=== PATIENT | female | born 1965 | race Caucasian/White ===

== ENCOUNTER → 2017-06-21 11:31 | Outpatient (CLI) | payer BC ==
[~2017-06-21] VITALS: Ht 162.6 cm; Wt 81.8 kg
--- NOTE | ~2017-06-21 | OP ---
PATIENT NAME: DENIA PAZ MEDICAL RECORD: [id number] :61 LOCATION:D.CAT ADMISSION DATE: SURGEON: CHRISTY TAYLOR MD DATE OF OPERATION: 06/21/2017 PROCEDURES: Left heart cath, selective coronary angiography, and right radial approach. CATHETERS: A 5-Greenlandic sheath and [place] catheter. The procedure was well tolerated. The patient returned to the bentley and sheath was removed. TR band was placed. FINDINGS: Left ventriculography in 30-degree WICK view: Normal wall motion. Normal systolic function. CORONARY ANATOMY: LEFT MAIN: Left main is free of disease. LAD: Free of disease in the diagonal system. CIRCUMFLEX: Free of disease in the marginal system. RIGHT CORONARY ARTERY: Dominant artery, gives rise to PDA, free of disease. IMPRESSION: Normal systolic function. Normal coronary anatomy. TRANSINT:[id number] Voice Confirmation ID: [id number] DOCUMENT ID: [id number] CHRISTY TAYLOR MD CC: [id number] DICTATION DATE: 06/21/17 1411 MAIL RIDER: 06/21/17 1554 [facility] [address] [id number]
--- NOTE | ~2017-06-21 | HEMODYNAMI ---
PATIENT:DENIA PAZ MEDICAL RECORD: [id number] : 61 LOCATION:S[facility]ET[facility] ADMISSION DATE: 06/21/17 Generatedon:06/21/201714:10 Patient name: DENIA PAZ Patient #: [id number] SSN: : 1965 Date of study: 06/21/2017 Page: Of Hemodynamic Procedure Report Patient Data Patient Demographics Procedure consent was obtained First Name: DENIA Gender: Female Last Name: BRANDI : 1965 Middle Initial: YUAN Age: 52 year(s) Patient #: [id number] Race: Unknown Additional ID: [id number] Contact details [address]: [address] [place] [address] State: [place] City: [place] Zip code: [address] Past Medical History Allergies Allergen Reaction Date Comments Reported Other allergy 06/21/2017 Biaxin Admission Admission Data Admission Date: 06/21/2017 Admission Time: 11:31 Lab Results Lab Result Date: 06/21/2017 Lab Result Time: 11:55 Biochemistry Name Units Result Min Max BUN mg/dl 18 --(---*)-- 7 18 Creatinine mg/dl 0.8 --(-*--)-- 0.6 1.3 CBC Name Units Result Min Max Hematocrit % 42.1 --(*---)-- 42 54 Hemoglobin g/dl 14.3 --(*---)-- 13.5 17.5 Procedure Procedure Types Cath Procedure Diagnostic Procedure LHC LHC w/Coronaries Miscellaneous Procedures Moderate Sedation up to 15 minutes Procedure Description Procedure Date Procedure Date: 06/21/2017 Procedure Start Time: 13:52 Procedure End Time: 14:10 Procedure Staff Name Function Lázaro Cardenas MD Performing Physician Rubén Luna RN Nurse Jose Alba RT Monitor Erick He RT Scrub Dena Stein RT Scrub Lobo Blue RN Armature And Rotor Winder Procedure Data Cath Procedure Fluoroscopy Diagnostic fluoroscopy Total fluoroscopy Time: 4.8 time: 4.8 min min Diagnostic fluoroscopy Total fluoroscopy dose: 329 dose: 329 mGy mGy Contrast Material Contrast Material Type Amount (ml) Isovue 300 56 Entry Location Entry Primary Successful Side Size Upsize Upsize Entry Closure Mendez ccessful Closure Location (Fr) 1 (Fr) 2 (Fr) Remarks Device Remarks Radial Right 6 Fr Mechanical artery Short Compression Estimated blood loss: 5 ml Diagnostic catheters Device Type Used For End Catheter Placement Diagnostic Terumo 5Fr Procedure [place] 110cm catheter Diagnostic Infinity 5Fr Procedure Pigtail catheter Procedure Complications No complications Procedure Medications Medication Administration Route Dosage 0.9% NaCl I.V. 100 ml/hr Oxygen NC 2 l/min Heparin Flush Bag added to field 2 bags (1000units/500ml NS) Lidocaine 2% added to field 20 Radial Cocktail added to field 1 syringe (Verapomil 2mg/Nitro 400mcg/Heparin 1500units) Versed I.V. 1 mg Fentanyl I.V. 50 mcg Fentanyl I.V. 50 mcg Versed I.V. 1 mg Hemodynamics Rest HGB: 14.3 (g/dl) Heart Rate: 73 (bpm) Pressure Samples Time Site Value (mmHg) Purpose Heart Use Rate(bpm) 14:04 LV 110/5,7 EDP 73 14:05 AO 91/44(69) Pullback 75 14:05 LV 116/8,9 Pullback 75 Gradients Valve Time Site 1 Site 2 Mean SEP/DFP Peak To Heart Use (mmHg) (sec/min) Peak Rate (mmHg) (bpm) Aortic 14:05 LV AO 25 23 25 75 116/8,9 91/44(69) Calculations Valve P-P Mean Valve Index Valve Source Name Gradient Area Flow (cm2) Aortic 25 25 25 25 Snapshots Pre Cath Intra NCS Post Cath Vital Signs Time Heart Resp SPO2 etCO2 [id number] NIBP (mmHg) Rhythm Pain Sedation Rate (ipm) (%) (mmHg) (mmHg) Status Level (bpm) 13:42:27 72 19 100 0 0 134/74(113) NSR 0 (11) 10(A) , No pain 13:47:03 75 16 97 0 0 121/72(97) NSR 0 (11) 10(A) , No pain 13:51:46 76 14 98 0 0 121/57(86) NSR 0 (11) 10(A) , No pain 13:56:22 75 15 96 0 0 110/65(91) NSR 0 (11) 9(A) , No pain 14:00:59 84 14 97 0 0 100/63(81) NSR 0 (11) 9(A) , No pain 14:05:35 73 15 98 0 0 113/60(79) NSR 0 (11) 10(A) , No pain 14:10:14 70 15 98 0 0 116/69(94) NSR 0 (11) 10(A) , No pain Medications Time Medication Route Dose Verified Delivered Reason Notes Ef fectiveness by by 13:36:02 0.9% NaCl I.V. 100 Rubén Rubén Per ml/hr Lorigan Lorigan physician RN RN 13:36:22 Oxygen NC 2 l/min Rubén Rubén Per Lorigan Lorigan physician RN RN 13:36:38 Heparin Flush added 2 bags Rubén Rubén used for Bag to Lorigan Lorigan procedure (1000units/500ml field RN RN NS) 13:36:51 Lidocaine 2% added 20ml Rubén Rubén for local to vial Lorigan Lorigan anesthetic field RN RN 13:37:08 Radial Cocktail added 1 Rubén Rubén used for (Verapomil to syringe Lorigan Lorigan procedure 2mg/Nitro field RN RN 400mcg/Heparin 1500units) 13:45:10 Versed I.V. 1 mg Rubén Rubén for Lorigan Lorigan sedation RN RN 13:45:24 Fentanyl I.V. 50 mcg Rubné Rubén for Lorigan Lorigan sedation RN RN 13:52:38 Fentanyl I.V. 50 mcg Rubén Rubén for Lorigan Lorigan sedation RN RN 13:52:50 Versed I.V. 1 mg Rubén Rubén for Lorigan Lorigan sedation RN engine hostler Log Time Note 13:15:34 Lobo Blue RN sent for patient. Start room use. 13:27:35 Time tracking: Regular hours 13:27:38 Plan of Care:Hemodynamics will remain stable., Cardiac rhythm will remain stable., Comfort level will be maintained., Respiratory function will remain adequate., Patient/ family verbilizes understanding of procedure., Procedure tolerated without complication., Recovers from procedure without complications.. 13:30:59 Patient received from Pre/Post Procedure Room to CCL 1 Alert and oriented. Tansferred to table in Supine position. 13:31:01 Warm blankets applied, and gomez hugger turned on for patient comfort. 13:31:01 Correct patient and procedure confirmed by team. 13:31:03 Signed procedure consent form obtained from patient. 13:31:05 ECG and BP/O2 sat monitors applied to patient. 13:31:28 H&P Date Dictated: 06/20/2017 Within 30 days and on chart., H&P Addendum completed by physician on day of procedure. (MUST COMPLETE FOR ALL OUTPATIENTS). 13:31:29 Pre-procedure instructions explained to patient. 13:31:30 Pre-op teaching completed and patient verbalized understanding. 13:31:31 Family in patients room. 13:31:33 Patient NPO since Midnight. 13:31:48 Patient allergic to Other allergyBiaxin 13:36:02 0.9% NaCl 100 ml/hr I.V. was administered by Rubén Luna RN; Per physician; 13:36:22 Oxygen 2 l/min NC was administered by Rubén Luna RN; Per physician; 13:36:23 Lab Result : Creatinine 0.8 mg/dl 13:36:23 Lab Result : BUN 18 mg/dl 13:36:23 Lab Result : Hematocrit 42.1 % 13:36:23 Lab Result : Hemoglobin 14.3 g/dl 13:36:28 Is the patient allergic to Iodine/contrast media? No. 13:36:38 Heparin Flush Bag (1000units/500ml NS) 2 bags added to field was administered by Rubén Luna RN; used for procedure; 13:36:51 Lidocaine 2% 20ml vial added to field was administered by Rubén Luna RN; for local anesthetic; 13:37:08 Radial Cocktail (Verapomil 2mg/Nitro 400mcg/Heparin 1500units) 1 syringe added to field was administered by Rubén Luna RN; used for procedure; 13:38:34 Is patient on blood thinner?No 13:38:36 Patient diabetic? No. 13:38:40 Previous problem with sedation/anesthesia? No ? 13:38:41 Snore? Yes 13:38:42 Sleep apnea? Yes 13:38:43 Deviated septum? No 13:38:44 Opens mouth fully? Yes 13:38:44 Sticks out tongue? Yes 13:38:50 Airway obstruction? Yes asthma 13:38:53 Dentures? No ? 13:38:56 Modified Ba's test Ulnar < 7 seconds 13:38:58 Patient pain scale 0/10 ?. 13:39:03 IV patent on arrival in left wrist with 0.9% NaCl at [facility]. 13:39:06 Lab results completed and on chart. 13:39:08 Right Radial & Right Groin area was prepped with chlora-prep and draped in sterile fashion 13:39:09 Alarms reviewed by R. N. 13:39:10 Sharps counted by scrub and verified by R.N. 13:39:13 Use device set Radial Dx 13:39:14 MBrace Wrist Support opened to sterile field. 13:39:15 Acist Manifold opened to sterile field. 13:39:15 Acist Hand Control opened to sterile field. 13:39:16 Acist Syringe opened to sterile field. 13:39:17 Tegaderm 4 x 4 opened to sterile field. 13:39:18 Medline Cath Pack opened to sterile field. 13:39:18 Bag Decanter opened to sterile field. 13:39:18 Terumo 6Fr Slender Glidesheath opened to sterile field. 13:39:19 St Darryn 260cm J .035 wire opened to sterile field. 13:41:36 Vital chart was started 13:44:06 Baseline sample Acquired. 13:44:10 Rhythm: sinus rhythm 13:44:13 Full Disclosure recording started 13:44:19 Physician arrived 13:44:20 --------ALL STOP TIME OUT------ 13:44:20 Final Timeout: patient, procedure, and site verified with staff and physician. All members of the team are in agreement. 13:44:22 Right Radial & Right Groin site verified by team. 13:44:25 Physical assessment completed. ASA score P 2 - A patient with mild systemic disease as per Lázaro Cardenas MD. 13:44:29 Sedation plan: IV Moderate Sedation Versed, Fentanyl 13:45:10 Versed 1 mg I.V. was administered by Rubén Luna RN; for sedation; 13:45:24 Fentanyl 50 mcg I.V. was administered by Rubén Luna RN; for sedation; 13:51:06 Zero performed for pressure channel P1 13:52:38 Fentanyl 50 mcg I.V. was administered by Rubén Luna RN; for sedation; 13:52:42 Procedure started. 13:52:47 Local anesthetic to right radial artery with Lidocaine 2% by Lázaro Cardenas MD.INITIAL ACCESS ONLY 13:52:50 Versed 1 mg I.V. was administered by Rubén Luna RN; for sedation; 13:52:54 A 6 Fr Short sheath was inserted into the Right Radial artery 13:56:52 A Diagnostic Terumo 5Fr [place] 110cm catheter was advanced over the wire and used for Procedure. 13:59:14 LCA angiography performed. 14:00:32 RCA angiography performed. 14:01:34 Catheter removed. 14:02:17 A Diagnostic Infinity 5Fr Pigtail catheter was advanced over the wire and used for Procedure. 14:04:56 LV gram done using WICK 14:04:58 Injector settings: Ml/sec: 10, Volume: 20, 14:05:08 EF : 55 % 14:05:21 Catheter removed. 14:05:28 Terumo TR Band Standard opened to sterile field. 14:05:37 Sheath removed intact; hemostasis achieved with Mechanical Compression to the Right Radial artery. 14:05:39 Procedure ended.(Physican Out) 14:07:21 Fluoroscopy time 04.80 minutes. 14:07:26 Fluoroscopy dose: 329 mGy 14:07:26 Flurop Dose total: 329 14:07:42 Contrast amount:Isovue 300 56ml. 14:07:43 Sharps counted by scrub and verified by R.N. 14:07:46 TR band inflated with 8cc of air. 14:07:47 Insertion/operative site no bleeding no hematoma. 14:07:53 Post right radial artery:stable, soft, clean and dry 14:07:56 Post Procedure Pulses reassessed and unchanged 14:08:00 Post-procedure physical assessment completed. ASA score P 2 - A patient with mild systemic disease as per Lázaro Cardenas MD. 14:08:02 Post procedure rhythm: unchanged. 14:08:06 Estimated blood loss: 5 ml 14:08:07 Post procedure instruction explained to patient.Patient verbalizes understanding. 14:08:21 Patient needs reinforcement of post procedure teaching. 14:10:08 Procedure and supply charges have been captured, reviewed, submitted and are correct. 14:10:10 Procedure Complication : No complications 14:10:12 Vital chart was stopped 14:10:12 See physician's report for complete and final results. 14:10:13 Report given to Pre/Post Procedure Room. 14:10:15 Patient transfered to Pre/Post Procedure Room with Stretcher. 14:10:17 Procedure ended. 14:10:17 Full Disclosure recording stopped 14:10:21 End room use (Document Last) Device Usage Item Name Manufacture Quantity Catalog Hospital Part Current Minimal Lot# / Number Charge Number Stock [facility]# Code [facility] [place] [address] 140-0250-00 908928 35335 290355 5 Wrist Vascular Support Dynamics Acist Acist 1 97046 683728 006619 180000 5 Manifold [employer] Inc Acist Hand Acist 1 06836 991685 740566 043456 5 Control [employer] Inc Acist Acist 1 72589 993045 251041 323008 20 Syringe [employer] Inc Tegaderm 4 3M 1 1626W 074937 261657 189688 5 x 4 Medline Cardinal 1 [id number] 410948 55722 435688 5 Cath Pack Health Bag Microtek 1 2002S 653774 51785 131299 5 [employer] Terumo 6Fr Terumo 1 [id number] 225966 080854 693624 [address] St Darryn 1 349478 592573 449129 175439 30 260cm J .035 wire Diagnostic Terumo 1 40-2147 811151 225130 590696 5 Terumo 5Fr [place] 110cm catheter Diagnostic Cardinal 1 [id number] 479805 646597 228931 5 [employer] 5Fr Pigtail catheter Terumo TR Terumo 1 [id number] 613124 486652 289803 40 Band Standard Signature Audit [place] Stage Time Signature Unsigned Intra-Procedure 06/21/2017 Jose Alba 2:10:41 PM RT(R) Signatures Monitor : Jose Alba RT Signature : Date : Time : [facility] [address] [facility] [place] [address]
[~2017-06-21 11:31] MED LIST: BAYER CHEWABLE81 MG PO; PREMARIN45 GM VG; ZANTAC150 MG PO; ZYRTEC10 MG PO
[2017-06-21 11:56] VITALS: BP 149/82; Ht 162.6 cm; Wt 81.8 kg
[2017-06-21 12:13] LABS: BASOPHILS 0.1 % (0-2); HEMATOCRIT 42.1 % (36.0-48.0); HEMOGLOBIN 14.3 g/dL (12-16); IMMATURE GRANULOCYTES 0.3 % (0-5); LYMPHOCYTES 27.8 % (15-50); MCH 30.7 pg (26.0-34.0); MCV 90.3 fL (80.0-100.0); MEAN PLATELET VOLUME 9.2 fL (7.4-10.4); MONOCYTES 5.8 % (2-11); PLATELET COUNT 233 10x3/uL (130-400); RBC 4.66 10x6/uL (4.00-5.40); RDW 13.5 % (11.5-14.5); WBC 6.9 10x3/uL (4.8-10.8)
[2017-06-21 12:16] LABS: CALC OSMOLALITY 281 mosm/kg (275-300); CALCIUM 9.3 mg/dL (8.5-10.1); CARBON DIOXIDE 29.7 mmol/L (21.0-32.0); CHLORIDE - SERUM 104 mmol/L (98-107); CREATININE - SERUM 0.8 mg/dL (0.6-1.3); GLUCOSE 89 mg/dL (74-106); POTASSIUM - SERUM 3.7 mmol/L (3.5-5.1); SODIUM 141 mmol/L (136-145); UREA NITROGEN 18 mg/dL (7-18); eGFR NON AFRICAN AMERICAN 79 mL/min (90-120)
[2017-06-21 12:17] LABS: HCG SERUM NEGATIVE (NEGATIVE)
--- NOTE | 2017-06-21 14:15 | NUR ---
1415 RECIEVED TO ROOM VIA STRETCHER FROM RESOLUTION SPECIALIST WITH TR BAND TO R/WRIST CDI NO BLEEDING NO HEMATOMA NOTED VSS WITH CHEST PAIN DENIED. REPORTS OF A CLEAN CATH WITH NO INTERVENTION DONE.
--- NOTE | 2017-06-21 14:31 | NUR ---
VSS WITH CHEST PAIN DENIED FAMILY IS PRESENT AT BEDSIDE. TR BAND TO R/WRIST CDI NO BLEEDING NO HEMATOMA NOTED.
--- NOTE | 2017-06-21 14:45 | NUR ---
DENIED PAIN OR NEEDS TR BAND TO R/WRIST CDI NO BLEEDING NO HEMATOMA NOTED
--- NOTE | 2017-06-21 15:11 | NUR ---
VSS WITH NEEDS DENIED FAMILY AT SIDE
--- NOTE | 2017-06-21 15:27 | NUR ---
4 CC AIR REMOVED FROM TR BAND WITH NO BLEEDING NO HEMATOMA NOTED. VSS
--- NOTE | 2017-06-21 15:40 | NUR ---
4 CC AIR REMOVED FROM TR BAND WITH NO BLEEDING NO HEMATOMA NOTED. VSS
--- NOTE | 2017-06-21 15:54 | NUR ---
PIV REMOVED WITH DRESSING APPLIED. 4 CC AIR REMOVED FROM TR BAND WITH NO BLEEDING NO HEMATOMA NOTED. CHEST PAIN IS DENIED AND VSS PATIENT UP TO GET DRESSED FOR DISCHARGE HOME
--- NOTE | 2017-06-21 16:13 | NUR ---
VERBAL AND WRITTEN DISCHARGE GONE OVER WITH PATIENT AND . TR BAND REMOVED WITH NO BLEEDING NO HEMATOMA NOTED DRESSING APPLIED. PATIENT DENIED CHEST PAIN OR DISCOMFORT. TRANSPORTED VIA TO PARKING FOR FAMILY TO DRIVE HOME
== END | disposition home or self-care (01) ==
LOC: D.CATH 11:31
PROVIDERS: Internal Medicine Interventional Cardiology
DX: I20.9 Angina pectoris, unspecified (principal); R07.9 Chest pain, unspecified; Z01.812 Encounter for preprocedural laboratory examination

== ENCOUNTER → 2017-07-19 16:02 | Outpatient (CLI) | payer BC ==
[2017-06-21 11:56] VITALS: BMI 30.9
== END | disposition home or self-care (01) ==
LOC: D.MAMMO 16:00
DX: Z12.31 Encounter for screening mammogram for malignant neoplasm of breast (principal)

== ENCOUNTER 2017-07-27 18:41 | Emergency (ER) | payer BC ==
[2017-06-21 11:56] VITALS: BMI 30.9
== END 2017-07-27 21:22 | disposition home or self-care (01) ==
LOC: D.ER 18:41
DX: R51 Headache (principal); R60.0 Localized edema

== ENCOUNTER → 2017-09-04 10:41 | Outpatient (CLI) | payer BC ==
[2017-06-21 11:56] VITALS: BMI 30.9
== END | disposition home or self-care (01) ==
LOC: D.RAD 10:41
DX: R13.10 Dysphagia, unspecified (principal)

== ENCOUNTER → 2018-12-11 08:24 | Outpatient (CLI) | payer BC ==
[2017-06-21 11:56] VITALS: BMI 30.9
== END | disposition home or self-care (01) ==
LOC: D.US 08:24
PROVIDERS: ATTEND Internal Medicine Gastroenterology
DX: R10.9 Unspecified abdominal pain (principal)

== ENCOUNTER 2019-05-29 14:30 | Outpatient (CLI) | payer BC ==
[2017-06-21 11:56] VITALS: BMI 30.9
== END 2019-05-29 15:00 | disposition home or self-care (01) ==
LOC: D.MAMMO 14:30
PROVIDERS: ATTEND Family Medicine
DX: Z12.31 Encounter for screening mammogram for malignant neoplasm of breast (principal)

== ENCOUNTER → 2019-07-17 18:51 | Outpatient (CLI) | payer BC ==
[2017-06-21 11:56] VITALS: BMI 30.9
[~2019-07-17 18:51] MED LIST changes: +ALBUTEROL SULF8.5 GM INH; +HYDROCODON-ACE1 EA10 PO; +PROTONIX40 MG PO; +REGLAN10 MG PO
== END | disposition home or self-care (01) ==
LOC: D.LABREF 18:51
PROVIDERS: ATTEND Urology
DX: R31.9 Hematuria, unspecified (principal)

== ENCOUNTER → 2019-08-15 07:27 | Outpatient (CLI) | payer BC ==
[2017-06-21 11:56] VITALS: BMI 30.9
== END | disposition home or self-care (01) ==
LOC: D.OPS 07:27
PROVIDERS: ATTEND Surgery
DX: K21.9 Gastro-esophageal reflux disease without esophagitis (principal); K44.9 Diaphragmatic hernia without obstruction or gangrene

== ENCOUNTER 2019-08-20 09:26 | Day surgery (SDC) | payer BC ==
[2019-08-19 11:13] LABS: BASOPHILS 0.1 % (0-2); EOSINOPHILS 1.5 % (0-7); HEMATOCRIT 41.3 % (36.0-48.0); HEMOGLOBIN 13.8 g/dL (12-16); IMMATURE GRANULOCYTES 0.1 % (0-5); LYMPHOCYTES 27.7 % (15-50); MCH 29.9 pg (26.0-34.0); MCHC 33.4 g/dL (31.0-37.0); MCV 89.4 fL (80.0-100.0); MEAN PLATELET VOLUME 8.8 fL (7.4-10.4); MONOCYTES 7.3 % (2-11); NEUTROPHILS 63.3 % (40-80); PLATELET COUNT 254 10x3/uL (130-400); RBC 4.62 10x6/uL (4.00-5.40); RDW 14.8 % (11.5-14.5); WBC 7.1 10x3/uL (4.8-10.8)
[2019-08-19 11:30] LABS: ANION GAP 9.7 mmol/L (8-16); CALCIUM 9.8 mg/dL (8.5-10.1); CARBON DIOXIDE 32.3 mmol/L (21.0-32.0); CREATININE - SERUM 0.9 mg/dL (0.6-1.3)
[~2019-08-20] VITALS: Ht 162.6 cm; Wt 63.6 kg
[~2019-08-20 09:26] MED LIST changes: -HYDROCODON-ACE1 EA10 PO; -REGLAN10 MG PO
[2019-08-20 10:16] VITALS: BP 139/90; BMI 33.0
[2019-08-20 15:51] VITALS: BP 130/67
--- NOTE | 2019-08-20 16:17 | NUR ---
received patient from recovery alert and oriented. slightly drowsy. 5 lap sites to abdomen, dressing c/d/i. iv to left forearm, sl. site patent without redness or swelling. family at bedside. denies any needs at this time. call light in reach. will continue to monitor.
--- NOTE | 2019-08-20 18:18 | NUR ---
ALERT AND ORIENTED, RESTING IN BED. NO C/O PAIN, DILAUDID VOLUNTEER ASSISTANT MANAGING PAIN AT THIS TIME. NO S/S OF ACUTE DISTRESS NOTED. FAMILY AT BEDSIDE. DENIES ANY NEEDS AT THIS TIME. CALL LIGHT IN REACH. WILL CONTINUE TO MONITOR.
[2019-08-20 18:43] VITALS: BP 124/66; Ht 162.6 cm; Wt 63.6 kg
[2019-08-20 20:00] VITALS: BP 138/56
[2019-08-20 20:07] VITALS: BP 144/103
[2019-08-21] VITALS: BP 131/69
[2019-08-21 04:30] VITALS: BP 129/79
[2019-08-21 06:24] LABS: BASOPHILS 0 % (0-2); EOSINOPHILS 0 % (0-7); HEMATOCRIT 38.9 % (36.0-48.0); HEMOGLOBIN 12.4 g/dL (12-16); IMMATURE GRANULOCYTES 0.2 % (0-5); LYMPHOCYTES 7.9 % (15-50); MCH 29.2 pg (26.0-34.0); MCHC 31.9 g/dL (31.0-37.0); MEAN PLATELET VOLUME 9.2 fL (7.4-10.4); MONOCYTES 6.1 % (2-11); NEUTROPHILS 85.8 % (40-80); PLATELET COUNT 265 10x3/uL (130-400); RBC 4.25 10x6/uL (4.00-5.40); RDW 15.1 % (11.5-14.5); WBC 8.5 10x3/uL (4.8-10.8)
[2019-08-21 06:38] LABS: CALC OSMOLALITY 290 mosm/kg (275-300); CALCIUM 8.5 mg/dL (8.5-10.1); CARBON DIOXIDE 26.8 mmol/L (21.0-32.0); CHLORIDE - SERUM 108 mmol/L (98-107); CREATININE - SERUM 0.7 mg/dL (0.6-1.3); GLUCOSE 109 mg/dL (74-106); POTASSIUM - SERUM 4.3 mmol/L (3.5-5.1); SODIUM 145 mmol/L (136-145); UREA NITROGEN 15 mg/dL (7-18); eGFR NON AFRICAN AMERICAN > 90 mL/min (90-120)
[2019-08-21 07:01] LABS: MCV 91.5 fL (80.0-100.0)
[2019-08-21 08:40] VITALS: BP 137/64
--- NOTE | 2019-08-21 09:26 | NUR ---
music therapy specialist dc at this time. c/l in reach at bedside.
[2019-08-21 12:40] VITALS: BP 121/66
[2019-08-21] MEDS ORDERED: HYDROCODON-ACE1 EA10 PO (12:47)
[2019-08-21] MEDS ORDERED: REGLAN10 MG PO (12:47)
--- NOTE | 2019-08-21 13:58 | NUR ---
I have reviewed this patient and I concur with the Shift Assessment completed by the Licensed Practical Nurse today this shift.
--- NOTE | 2019-08-21 14:54 | NUR ---
DC HOME AT THIS TIME VOICE UNDERSTANDING OF DC ORDERS. HUBSAND AT BEDSIDE AND VOICE UNDERSTANDING WELL. IV DC WITH TIP INTACT. STABLE CONDITION UPON DEPARTURE.
--- NOTE | 2019-09-03 13:37 | OP ---
PATIENT NAME: DENIA PAZ MEDICAL RECORD: [id number] :61 LOCATION:DReganOPS ADMISSION DATE: SURGEON: NATE ROYAL MD DATE OF OPERATION: 08/20/2019 PREOPERATIVE DIAGNOSES: 1. Gastroesophageal reflux disease. 2. Hiatal hernia. 3. Hypertension. 4. Asthma. POSTOPERATIVE DIAGNOSES: 1. Gastroesophageal reflux disease. 2. Hiatal hernia. 3. Hypertension. 4. Asthma. PROCEDURE: Laparoscopic Toupet fundoplication with hiatal hernia repair. SURGEON: Nate Royal MD REPORT OF PROCEDURE: The patient's abdomen was prepped and draped in sterile fashion. A Veress needle was inserted in the left upper quadrant and the abdomen was insufflated. An 11-mm Visiport trocar was inserted in the midline just above the umbilicus. We could see the Veress needle and there was no sign of any injury to bowel or surrounding structures. This was removed and a 12-mm trocar was then placed in the left subcostal region. Under direct visualization, a 5-mm trocar was placed in the epigastrium and another was placed in the right lateral subcostal region, and a final one was placed in the left lateral abdomen. The patient's left lobe of the liver was elevated. We were able to see the patient's stomach and the diaphragmatic hiatus. We began our dissection on the lesser curvature of the stomach, taking down the lesser omentum. This was done using Harmonic scalpel and we continued this dissection to the right side of the right alina. As we dissected this free from the surrounding peritoneal tissue, we were able to advance up into the patient's thoracic cavity around the esophagus. The esophagus was visualized and we did not do any damage to the esophagus during our mobilization. We went as far on this right side as we could and then we went to the greater curvature of the stomach and took down the short gastrics using Harmonic scalpel. We continued this dissection over to the fundus of the stomach up to the left side of the right alina. We again were able to score the peritoneum and get into the thoracic cavity and eventually had a 360-degree dissection of the esophagus from the intrathoracic adhesions. We continued this dissection up into the thoracic cavity to allow for better mobilization of the stomach. At the conclusion of this, we had about 2-2.5 cm of esophagus that was lying in the abdominal cavity without any tension. We were able to close the patient's esophageal hiatus with interrupted 0 Polydeks times 3. We then performed a 270 degree posterior Toupet wrap of the fundus of the stomach around the distal esophagus. This was done with the use of interrupted 0 Polydeks times 6. At the conclusion of this, we had a good patent wrap in place and no sign of any active bleeding. We irrigated out the right upper quadrant. At this point, the liver retractor was removed. The 11-mm trocar site fascias were closed with 0 Vicryl using a Gibran-Landen suture passer device. The ports and insufflation were then removed. The subcutaneous tissues were all infused with a total of 10 mL of 0.25% Marcaine with epinephrine and then closed with subcutaneous 5-0 Monocryl. OPERATIVE REPORT [id number] DENIA PAZ COMPLICATIONS: None. CONDITION: Stable. ANESTHESIA: General endotracheal and local. BLOOD LOSS: Minimal. TRANSINT:[id number] Voice Confirmation ID: [id number] DOCUMENT ID: [id number] NATE ROYAL MD at 1337 CC: GALLO MCDANIEL MD and JOHANNA ROQUE DO [id number] DICTATION DATE: 08/20/19 1459 GLASS BLOCK BENDER: 08/20/19 1542 [facility] 08/21/19 [facility] [address] [place] [address]
== END 2019-08-21 14:56 ==
LOC: D.MS 09:26 → D.OPS 09:26 → D.PAN 11:30 → D.OPS 11:30 → D.MS 15:26 → D.OPS 08-21 14:56
PROVIDERS: ATTEND Surgery
DX: K21.9 Gastro-esophageal reflux disease without esophagitis (principal); K44.9 Diaphragmatic hernia without obstruction or gangrene; I10 Essential (primary) hypertension; J45.909 Unspecified asthma, uncomplicated

== ENCOUNTER 2021-01-29 08:35 | Day surgery (SDC) | payer BC ==
[2021-01-26 16:09] LABS: BASOPHILS 0.3 % (0-2); EOSINOPHILS 2.3 % (0-7); HEMATOCRIT 39.3 % (36.0-48.0); HEMOGLOBIN 13.1 g/dL (12-16); IMMATURE GRANULOCYTES 0.3 % (0-5); LYMPHOCYTE ABS# 1.91 10x3/uL (1.18-3.74); LYMPHOCYTES 25.4 % (15-50); MCH 29.2 pg (26.0-34.0); MCHC 33.3 g/dL (31.0-37.0); MCV 87.5 fL (80.0-100.0); NEUTROPHIL ABS# 4.65 10x3/uL (1.56-6.13); NEUTROPHILS 61.7 % (40-80); PLATELET COUNT 302 10x3/uL (130-400); RBC 4.49 10x6/uL (4.00-5.40); RDW 14.3 % (11.5-14.5); WBC 7.5 10x3/uL (4.8-10.8)
[2021-01-26 16:21] LABS: ANION GAP 12.7 mmol/L (8-16); CALCIUM 9.2 mg/dL (8.5-10.1); CARBON DIOXIDE 28.6 mmol/L (21.0-32.0); POTASSIUM - SERUM 4.3 mmol/L (3.5-5.1)
[~2021-01-29] VITALS: Ht 162.6 cm; Wt 90.3 kg
[~2021-01-29 08:35] MED LIST changes: +ACETAMINOPHEN500 M1 PO; +AUGMENTIN 875-11 TAB PO; +CYCLOBENZAPRINE10 MG PO; +HYDROCODON-ACE1 EA10 PO; +IBUPROFEN800 MG PO; +LISINOPRIL5 MG PO; +REGLAN10 MG PO
[2021-01-29 09:43] VITALS: BP 118/90; Ht 162.6 cm; Wt 90.3 kg
--- NOTE | 2021-02-01 07:09 | OP ---
PATIENT NAME: DENIA PAZ MEDICAL RECORD: [id number] :61 LOCATION:D.OPS ADMISSION DATE: SURGEON: DONNA LUU MD DATE OF OPERATION: 01/29/2021 PREOPERATIVE DIAGNOSES: 1. Low-grade squamous intraepithelial cervical lesion. 2. Cervical stenosis. POSTOPERATIVE DIAGNOSES: 1. Low-grade squamous intraepithelial cervical lesion. 2. Cervical stenosis. PROCEDURE: Loop electrosurgical excision procedure. SURGEON: Donna Luu. ANESTHESIA: General by LMA. IV FLUID: Per anesthesia record. ESTIMATED BLOOD LOSS: Minimal. FINDINGS: 1. Grossly normal external genitalia. 2. Obviously stenotic external cervical os. COMPLICATIONS: None apparent. SPECIMENS: Cervical cone biopsy. DESCRIPTION OF PROCEDURE: The patient was taken to the operating room where general anesthesia was achieved without any difficulty. The patient was prepped and draped in normal sterile fashion in the dorsal lithotomy position in the [facility]. At this point, the vagina was prepped and bladder was drained of approximately 25 mL of straw-colored urine. At this point, insulated speculum was placed into the vagina and the cervix was identified. The cervical pinpoint os was noted and 8 x 5 mm LEEP electrode was used to excise an approximately 6-7 mm deep cone biopsy. Following removal of the cone biopsy, a #2 dilator was used to ensure patency of the endocervical canal. Minimal bleeding was noted following the loop electrosurgical excision. The crater was then cauterized with ball cautery and again the cervical os was found to be open. Ferrous subsulfate was placed on the wound site. The speculum was removed. The patient tolerated the procedure well and was transferred to postanesthesia recovery stable without incident. TRANSINT:[id number] Voice Confirmation ID: [id number] DOCUMENT ID: [id number] OPERATIVE REPORT [id number] CHANCEDENIA GARCÍA DONNA LUU MD at 0709 CC: [id number] DICTATION DATE: 01/29/21 1206 LENS GRINDING MACHINE OPERATOR: 01/29/21 1511 [facility] 01/29/21 [place] [address]
== END 2021-01-29 14:20 | disposition home or self-care (01) ==
LOC: D.OPS 08:35
PROVIDERS: Anesthesiology; ATTEND Obstetrics & Gynecology
DX: N88.2 Stricture and stenosis of cervix uteri (principal); R87.612 Low grade squamous intraepithelial lesion on cytologic smear of cervix (LGSIL); J45.909 Unspecified asthma, uncomplicated; I10 Essential (primary) hypertension